=== PATIENT | male | born 1990 | race Caucasian/White ===

== ENCOUNTER 2017-05-05 18:50 | Emergency (ER) | payer BC ==
--- NOTE | 2017-05-05 19:26 | EDM.PDOC ---
ED HPI GENERAL MEDICAL PROBLEM - General Chief Complaint: Lower Extremity Injury/Pain Stated Complaint: ANKLE INJURY Time Seen by Provider: 05/05/17 19:22 Source of Information: Reports: Patient, EMS, EMS Notes Reviewed, Family ( girlfriend at bedside) History Limitations: Reports: No Limitations, Intoxication (mild) - History of Present Illness INITIAL COMMENTS - FREE TEXT/NARRATIVE: Pt to ER via EMS after slipping on a pallet on the ice and hearing a loud pop from his left ankle. Denies previous injury. Given IV Dilaudid in the ambulance. Currently rates pain a 6.5. Able to move toes without difficulty. Does complain of not being able to "feel his foot". Admits to drinking alcohol this afternoon. Last drank about 6pm. Last ate 1pm. Onset: Today Onset Date: 05/05/17 Onset Time: 18:00 Location: Reports: Lower Extremity, Left Quality: Reports: Sharp Severity: Moderate Improves with: Reports: Cold Therapy, Medication Worsens with: Reports: Movement Context: Reports: Trauma Associated Symptoms: Reports: Other (feels like his foot is numb) Treatments MEETING SPECIALIST: Reports: Other (see below) Left Ankle Pain Score (Numeric/FACES): 6 - Related Data Allergies Allergy/AdvReac Type Severity Reaction Status Date / Time cefazolin Allergy Swelling Verified 05/05/17 19:04 unga Allergy Anaphylactic Verified 05/05/17 19:04 Shock sulfamethoxazole Allergy Swelling Verified 05/05/17 19:04 [From ] trimethoprim [From ] Allergy Swelling Verified 05/05/17 19:04 Home Meds: Home Meds Amoxicillin 1 tab PO TID 05/05/17 [History] NK [No Known Home Meds] 05/05/17 [History] Past Medical History Musculoskeletal History: Reports: Fracture Neurological History: Reports: Concussion - Infectious Disease History Infectious Disease History: Reports: Chicken Pox - Past Surgical History HEENT Surgical History: Reports: Adenoidectomy, Tonsillectomy, Other (See Below) Other HEENT Surgeries/Procedures: dental abcess Social & Family History - Family History Family Medical History: Noncontributory - Tobacco Use Smoking Status *Q: Current Every Day Smoker Years of Tobacco use: 14 Packs/Tins Daily: 1 - Caffeine Use Caffeine Use: Reports: Coffee, Energy Drinks, Soda - Alcohol Use Days Per Week of Alcohol Use: 2 Number of Drinks Per Day: 1 Total Drinks Per Week: 2 Date of Last Drink: 05/05/17 - Recreational Drug Use Recreational Drug Use: No Review of Systems - Review of Systems Review Of Systems: See Below Constitutional: Reports: No Symptoms Eyes: Reports: No Symptoms Ears: Reports: No Symptoms Nose: Reports: No Symptoms Mouth/Throat: Reports: No Symptoms Respiratory: Reports: No Symptoms Cardiovascular: Reports: No Symptoms GI/Abdominal: Reports: No Symptoms Genitourinary: Reports: No Symptoms Musculoskeletal: Reports: Foot Pain (left foot and ankle) Skin: Reports: Other (swelling to left medial ankle but no bruising noted at this time) Neurological: Reports: Difficulty Walking, Gait Disturbance Psychiatric: Reports: No Symptoms ED EXAM, GENERAL - Physical Exam Exam: See Below Exam Limited By: Intoxication (mild) General Appearance: Alert Ears: Normal External Exam, Normal Canal, Hearing Grossly Normal, Normal TMs Nose: Normal Inspection, Normal Mucosa, No Blood Throat/Mouth: Normal Inspection, Normal Lips, Normal Teeth, Normal Gums, Normal Oropharynx, Normal Voice, No Airway Compromise Head: Atraumatic, Normocephalic Neck: Normal Inspection, Supple, Non-Tender, Full Range of Motion Respiratory/Chest: No Respiratory Distress, Lungs Clear, Normal Breath Sounds, No Accessory Muscle Use, Chest Non-Tender Cardiovascular: Normal Peripheral Pulses, Regular Rate, Rhythm, No Edema, No Gallop, No JVD, No Murmur, No Rub Peripheral Pulses: 2+: Posterior Tibial (L), Dorsalis Pedis (L) GI/Abdominal: Normal Bowel Sounds, Soft, Non-Tender, No Organomegaly, No Distention, No Abnormal Bruit, No Mass Extremities: Normal Capillary Refill, Joint Swelling (left medial ankle), Limited Range of Motion (left ankle) Neurological: Alert, Oriented, CN II-XII Intact, Normal Cognition, Normal Reflexes, No Motor/Sensory Deficits, Other (sensation intact to left foot.) Skin Exam: Warm, Dry, Intact, Normal Color, No Rash, Other (no bruising noted at this time.) ED TRAUMA EXTREMITY PROCEDURES - Splinting Left Lower Extremity Splint Site: left ankle Pre-Procedure NV Status: Normal Post-Procedure NV Status: Normal Splint Material: Fiberglass Splint Design: Posterior Applied & Form Fitted By: Provider Provider Post-Splint Application NV Check: NV Status Normal, Good Position Complications: No Course - Vital Signs Last Recorded V/S: Last Vital Signs Temp 98.9 F 05/05/17 18:59 Pulse 95 05/05/17 18:59 Resp 18 05/05/17 18:59 BP 149/77 H 05/05/17 18:59 Pulse Ox 99 05/05/17 18:59 - Orders/Labs/Meds Orders: Active Orders 24 hr Category Date Time Status Splinting [RC] ASDIRECTED Care 05/05/17 20:19 Active Ankle Min 3V Lt [CR] Stat Exams 05/05/17 19:18 Taken Ankle wo Cont Lt [CT] Stat Exams 05/05/17 20:14 Ordered Acetaminophen/HYDROcodone [Rochelle 325-5 MG] Med 05/05/17 21:44 Once 2 tab PO ONETIME ONE Meds: Medications Discontinued Medications Generic Name Dose Route Start Last Admin Trade Name Freq PRN Reason Stop Dose Admin Hydromorphone HCl 1 mg 05/05/17 19:50 05/05/17 19:58 Dilaudid IVPUSH 05/05/17 19:51 1 mg ONETIME ONE Administration Ketorolac Tromethamine 30 mg 05/05/17 21:20 05/05/17 21:27 Toradol IVPUSH 05/05/17 21:21 30 mg ONETIME ONE Administration Departure - Departure Time of Disposition: 21:45 Disposition: Home, Self-Care 01 Condition: Good Clinical Impression: Fracture of fibula, distal, closed Qualifiers: Encounter type: initial encounter Fracture morphology: unspecified fracture morphology Laterality: left Qualified Code(s): S82.832A - Other fracture of upper and lower end of left fibula, initial encounter for closed fracture - Discharge Information Instructions: Crutch Use, Adult, [id number], Ankle Fracture Referrals: PCP,None [Primary Care Provider] - Forms: ED Department Discharge Additional Instructions: Xray shows mildly displaced closed distal fibula fracture on the left. Films forwarded to orthopedics in [facility] for overread and guidance in care. Dilaudid 1mg IV given at 2000. Dr Pandey, bench lathe operator, recommends a CT scan of the ankle. He would also like an H&P performed and the patient placed in a posterior splint and to be non weight bearing until he can evaluate him Miriam for surgery. Pt to continue ice, elevation. Pt will need to call [facility] on Sunday for information about his Sunday appointment. Rx for pain meds given to fill tomorrow, Hydrocodone 5/325 1-2 tabs every 4-6 hours as needed for pain, 2 tabs po given at 2200 prior to discharge. Toradol 30mg IV given prior to discharge to help keep patient comfortable during the night. IV dc'd. Pt to ice and elevate his ankle tonight. Has used crutches in the past. Stressed the need to remain non weight bearing until seen on Sunday. Pt and his girlfriend voice understanding of plan. - Problem List & Annotations (1) Fracture of fibula, distal, closed SNOMED Code(s): 438750286 Code(s): S82.839A - OTH FRACTURE OF UPPER AND LOWER END OF UNSP FIBULA, INIT Status: Acute Priority: Medium Current Visit: Yes Qualifiers: Encounter type: initial encounter Fracture morphology: unspecified fracture morphology Laterality: left Qualified Code(s): S82.832A - Other fracture of upper and lower end of left fibula, initial encounter for closed fracture - My Orders Last 24 Hours: My Active Orders 05/05/17 19:18 Ankle Min 3V Lt [CR] Stat 05/05/17 20:14 Ankle wo Cont Lt [CT] Stat 05/05/17 20:19 Splinting [RC] ASDIRECTED 05/05/17 21:44 Acetaminophen/HYDROcodone [Rochelle 325-5 MG] 2 tab PO ONETIME ONE - Assessment/Plan Last 24 Hours: My Active Orders 05/05/17 19:18 Ankle Min 3V Lt [CR] Stat 05/05/17 20:14 Ankle wo Cont Lt [CT] Stat 05/05/17 20:19 Splinting [RC] ASDIRECTED 05/05/17 21:44 Acetaminophen/HYDROcodone [Rochelle 325-5 MG] 2 tab PO ONETIME ONE
[2017-05-05] MEDS ORDERED: HYDROmorphone 1 MG/ML Syringe IVPUSH ONE (19:50)
[2017-05-05] MEDS ORDERED: Ketorolac 30 MG/ML SDV IVPUSH ONE (21:20)
[2017-05-05] MEDS ORDERED: Acetaminophen/HYDROcodone 325-5 MG Tab PO ONE (21:44)
--- NOTE | 2017-05-07 09:36 | CR ---
Ankle Min 3V Lt INDICATION: ankle pain, felt a pop COMPARISON: None FINDINGS: 3 views. Mildly displaced oblique fracture distal fibula. Small posterior malleolar fra cture. Disruption of the ankle mortise.
== END 2017-05-05 22:06 | disposition home or self-care (01) ==
LOC: JP.ED 18:50 → EDBD 18:50 → JP.ED 22:06
DX: S82.832A Other fracture of upper and lower end of left fibula, initial encounter for closed fracture (principal); F10.129 Alcohol abuse with intoxication, unspecified; F17.210 Nicotine dependence, cigarettes, uncomplicated; Z88.1 Allergy status to other antibiotic agents; Z88.2 Allergy status to sulfonamides; Z91.018 Allergy to other foods; W00.0XXA Fall on same level due to ice and snow, initial encounter
CPT/HCPCS: 29515; 73610; 73700; 96374; 96375; 99284; A9270; J1170; J1885